=== PATIENT | male | born 1975 | race Caucasian/White ===

== ENCOUNTER 2022-05-21 02:43 | Emergency (ER) | payer OTHER, SELFPAY ==
[2022-05-21] VITALS (14 sets, daily range): BP systolic 109–145; BP diastolic 55–104; PULSE 84–86; RESP 18–20; TEMP 35.6; O2SAT 99
--- NOTE | 2022-05-21 03:00 | ED.CHESTPAIN ---
HPI - Chest Pain General Chief Complaint: Chest Pain Stated Complaint: Chest Pain Time Seen by Provider: 05/21/22 02:54 History of Present Illness HPI narrative: 46-year-old man presenting to the emergency department complaint of relatively abrupt her sudden onset of low chest, gestures to epigastric area discomfort, pain beginning watching TV about an hour and 15 minutes prior to presentation. Vomited on the way here. He says that is had similar episodes like this and when I feel like this I usually take Tums. But have been 6 or 7 funerals this last year and thought maybe a better be checked out. Pain is like I have to have a burp. Has had heartburn which has resolved with weight loss in the past and has not been having recent issues with this. No palpitations. Not actually short of breath. No hematemesis. No known gallbladder disease. Does not drink alcohol. Related Data Home Medications Medication Instructions Recorded Confirmed cetirizine 10 mg tablet 10 mg PO QDAY 12/23/21 Previous Rx's Medication Instructions Recorded lisinopril 40 mg tablet 40 mg PO QDAY #90 tabs 12/26/21 omeprazole 40 mg capsule,delayed 40 mg PO DAILY #30 caps 05/21/22 release ondansetron 4 mg disintegrating 4 mg PO Q4-6H PRN nausea and 05/21/22 tablet vomiting #15 tabs Allergies Allergy/AdvReac Type Severity Reaction Status Date / Time No Known Drug Allergies Allergy Verified 12/23/21 14:06 Review of Systems Status of ROS Reports: 10 or more systems reviewed and unremarkable except as noted in History and below PFSH [facility] Social History Smoking Status: Never smoker Do you use any of these nicotine containing products: None How often do you have a drink containing alcohol: never AUDIT-C Alcohol total score: 0 Non-prescribed substance use: denies use service: No Exam Narrative Exam Narrative: Ambulatory into the emergency department. Tall. With emesis bag. Looks a little barba initially. Skin seems a little clammy. Periodically retching. Lungs appear to be clear. Neck is supple. Oropharynx is sticky. cranial nerves 2-12 look to be intact. There is no stridor. Mild tenderness in the epigastrium. Extremities are without edema. Well perfused. Cardiovascular little distant. Regular rate rhythm. No murmur rub or gallop. Const Vital Signs, click to edit/add: Vital Signs - 24 hr 05/21/22 04:32 05/21/22 04:41 05/21/22 04:52 Blood Pressure 127/104 H 133/86 138/84 05/21/22 05:03 05/21/22 05:12 05/21/22 06:02 Blood Pressure 139/77 139/91 H 120/80 Documenting provider has reviewed patient's vital signs: yes Course Vital Signs Vital signs: Initial Vital Signs Temperature 96.0 F L 05/21/22 02:49 Temperature Source Temporal Artery Scan 05/21/22 02:49 Pulse Rate 86 05/21/22 02:49 Pulse Rhythm 05/21/22 02:49 Respiratory Rate 20 05/21/22 02:49 Blood Pressure 145/97 H 05/21/22 02:49 Blood Pressure Mean 113 05/21/22 02:49 Blood Pressure Position Semi-Fowlers 05/21/22 02:49 Pulse Oximetry 99 05/21/22 02:49 Oxygen Delivery Method 05/21/22 02:49 Vital Signs Temperature 96.0 F L 05/21/22 02:49 Pulse Rate 86 05/21/22 02:49 Respiratory Rate 20 05/21/22 02:49 Blood Pressure 145/97 H 05/21/22 02:49 Pulse Oximetry 99 05/21/22 02:49 Oxygen Delivery Method 05/21/22 02:49 Temperature 96.0 F L 05/21/22 02:49 Pulse Rate 84 05/21/22 03:20 Respiratory Rate 18 05/21/22 03:20 Blood Pressure 120/80 05/21/22 06:02 Pulse Oximetry 99 05/21/22 03:20 Oxygen Delivery Method 05/21/22 03:20 MDM - Chest Pain MDM Narrative Medical decision making narrative: Experiencing vomiting or more retching episodes in the emergency department. Does receive IV fluids. Requested more for nausea was given initially Zofran and then Reglan as well. Finally GI cocktail. Lorazepam and ketamine as retching continued. Also given hyoscyamine. Still without major belly pain on repeat exam. Denies THC. Rested in the emergency department complaint of cold generally. No fever was documented. Ultimately I had been anticipating oral trial but says he can feel awful and be cold at home. I agree that it is chilly in this room. It has had numerous blankets. No fever was measured. Wonder if he had some degree of esophageal spasm with all this. Chest x-ray reviewed by me is with normal mediastinum. No apparent airspace disease. Radiology noting calcified granuloma right upper lung field. Labs otherwise are normal. Lab Data Attestation: I reviewed the patient's lab results. Labs: Lab Results 05/21/22 05/21/22 05/21/22 Range/Units 03:02 03:05 03:05 WBC 6.39 (4.50-11.00) K/uL RBC 4.29 L (4.30-5.90) m/uL Hgb 12.3 L (13.5-17.5) gm/dL Hct 37.0 (37.0-53.0) % MCV 86 (80-100) fL MCH 29 (26-34) pg MCHC 33 (32-36) gm/dL RDW Coeff of Yuliana 13.6 (11.5-15.5) % Plt Count 285 (140-440) K/uL Neut % (Auto) 61.5 (42.0-72.0) % Lymph % (Auto) 26.8 (20-44) % [place] % (Auto) 8.5 (0.0-11.0) % Eos % (Auto) 2.3 (0.0-7.0) % Baso % (Auto) 0.6 (0.0-3.0) % Neut # (Auto) 3.93 (1.7-7.0) K/uL Lymph # (Auto) 1.71 (0.90-2.90) K/uL [place] # (Auto) 0.50 (0.00-0.90) K/UL Eos # (Auto) 0.15 (0.00-0.50) K/uL Baso # (Auto) 0.04 (0.00-0.30) K/uL Sodium 136 (135-149) mmol/L Potassium 4.4 (3.6-5.1) mmol/L Chloride 107 (96-114) mmol/L Carbon Dioxide 22 (20-32) mmol/L BUN 25 H (5-24) mg/dL Creatinine 1.2 (0.5-1.5) mg/dL Estimated GFR 75 ml/min Glucose 141 H (60-115) mg/dL Calcium 9.3 (8.4-10.6) mg/dL Total Bilirubin 0.4 (0.1-1.5) mg/dL Direct Bilirubin 0.2 (0.0-0.5) mg/dL AST 21 (12-35) U/L ALT 21 (4-50) U/L Alkaline Phosphatase 72 (40-150) U/L Troponin I < 0.01 L (0.01-0.04) ng/mL C-Reactive Protein < 0.5 L (0.5-1.0) mg/dL NT-Pro-B Natriuret Pep < 20 pg/mL Total Protein 6.9 (6.0-8.3) g/dL Albumin 4.2 (3.3-5.0) g/dL SARS-CoV-2 (PCR) (Negative) Influenza Type A (PCR) (Negative) Influenza Type B (PCR) (Negative) RSV (PCR) (Negative) POC Troponin I 0.00 L (0.01-0.04) ng/ml 05/21/22 Range/Units 04:30 WBC (4.50-11.00) K/uL RBC (4.30-5.90) m/uL Hgb (13.5-17.5) gm/dL Hct (37.0-53.0) % MCV (80-100) fL MCH (26-34) pg MCHC (32-36) gm/dL RDW Coeff of Yuliana (11.5-15.5) % Plt Count (140-440) K/uL Neut % (Auto) (42.0-72.0) % Lymph % (Auto) (20-44) % [place] % (Auto) (0.0-11.0) % Eos % (Auto) (0.0-7.0) % Baso % (Auto) (0.0-3.0) % Neut # (Auto) (1.7-7.0) K/uL Lymph # (Auto) (0.90-2.90) K/uL [place] # (Auto) (0.00-0.90) K/UL Eos # (Auto) (0.00-0.50) K/uL Baso # (Auto) (0.00-0.30) K/uL Sodium (135-149) mmol/L Potassium (3.6-5.1) mmol/L Chloride (96-114) mmol/L Carbon Dioxide (20-32) mmol/L BUN (5-24) mg/dL Creatinine (0.5-1.5) mg/dL Estimated GFR ml/min Glucose (60-115) mg/dL Calcium (8.4-10.6) mg/dL Total Bilirubin (0.1-1.5) mg/dL Direct Bilirubin (0.0-0.5) mg/dL AST (12-35) U/L ALT (4-50) U/L Alkaline Phosphatase (40-150) U/L Troponin I (0.01-0.04) ng/mL C-Reactive Protein (0.5-1.0) mg/dL NT-Pro-B Natriuret Pep pg/mL Total Protein (6.0-8.3) g/dL Albumin (3.3-5.0) g/dL SARS-CoV-2 (PCR) Negative SARS-CoV-2 (Negative) Influenza Type A (PCR) Negative PCR FLU A (Negative) Influenza Type B (PCR) Negative PCR FLU B (Negative) RSV (PCR) Negative PCR RSV (Negative) POC Troponin I (0.01-0.04) ng/ml ECG Data Attestation: I personally reviewed and interpreted this ECG as follows: (Normal sinus rhythm rate of 72) Discharge Plan Discharge Clinical Impression: Epigastric pain, Vomiting Patient Disposition: Home w/ Parent or Adult Condition: Improved Additional Instructions: Focus on hydration with slow advance of diet over the next 24-36 hours. Diluted juices, soup broths to thicker soups and smoothies. Rice. [place]. Zofran from [facility]. I would also consider taking omeprazole for 2 weeks. Return again for intractable vomiting, marked increase in pain, associated fever. Prescriptions: New omeprazole 40 mg capsule,delayed release(DR/EC) 40 mg PO DAILY Qty: 30 0RF ondansetron 4 mg tablet,disintegrating 4 mg PO Q4-6H PRN (Reason: nausea and vomiting) Qty: 15 0RF No Action cetirizine 10 mg tablet 10 mg PO QDAY lisinopril 40 mg tablet 40 mg PO QDAY Qty: 90 3RF Follow Up/Referrals: Gil Covington MD [Primary Care Provider] - Stand Alone Forms: [employer] Info Instructions
--- NOTE | 2022-05-21 03:01 | CRLHL7_ITS ---
For Patients: As a result of the Century Cures Act, medical imaging exams and procedure reports are released immediately into your electronic medical record. You may view this report before your referring provider. If you have questions, please contact your health care provider. Indication: Chest pain. Technique: Chest 1 view. Comparison: None. Findings/Impression: Cardiovascular and mediastinum: Heart size and vasculature are normal in caliber and appearance. Moderate-sized hiatal hernia. No other finding to explain chest pain. Lungs and pleural space: Lungs are clear except for a calcified right upper lobe granuloma. No sign of infiltrate or mass. No sign of pleural effusion. No pneumothorax. Bones and soft tissues: No acute findings. Dictated by Martín Moura MD @ 05/21/2022 4:05:57 AM (Electronically Signed)
[2022-05-21] MEDS: ONDANSETRON 2 MG/ML inj 4 MG IVP (03:21)
[2022-05-21] MEDS: 0.9 % SODIUM CHLORIDE 1000 ml 1,000 ML IV (03:21)
[2022-05-21 03:27] LABS: Basophils Absolute Auto 0.04 K/uL (0.00-0.30); Basophils Percent Auto 0.6 % (0.0-3.0); Eosinophils Absolute Auto 0.15 K/uL (0.00-0.50); Eosinophils Percent Auto 2.3 % (0.0-7.0); Hemoglobin* 12.3 gm/dL (13.5-17.5); Immature Granulocytes Abs Auto 0.02 K/uL (0.00-0.30); Immature Granulocytes Pct Auto 0.3 %; Lymphocytes Absolute Auto 1.71 K/uL (0.90-2.90); Lymphocytes Percent Auto 26.8 % (20-44); Mean Corpuscular HGB Conc 33 gm/dL (32-36); Mean Corpuscular Hemoglobin 29 pg (26-34); Mean Corpuscular Volume 86 fL (80-100); Monocytes Percent Auto 8.5 % (0.0-11.0); Neutrophils Absolute Auto 3.93 K/uL (1.7-7.0); Neutrophils Percent Auto 61.5 % (42.0-72.0); Platelet Count* 285 K/uL (140-440); RDW Coefficient of Variation % 13.6 % (11.5-15.5); Red Blood Count 4.29 m/uL (4.30-5.90); White Blood Count* 6.39 K/uL (4.50-11.00)
[2022-05-21 03:32] LABS: Slide Review Reflex No
[2022-05-21 03:40] LABS: Chloride* 107 mmol/L (96-114)
[2022-05-21 03:41] LABS: Albumin* 4.2 g/dL (3.3-5.0); Potassium* 4.4 mmol/L (3.6-5.1); Sodium* 136 mmol/L (135-149)
[2022-05-21 03:43] LABS: Creatinine* 1.2 mg/dL (0.5-1.5); Estimated Glomerular Filt Rate 75 ml/min
[2022-05-21 03:44] LABS: Alanine Aminotransferase* 21 U/L (4-50); Alkaline Phosphatase* 72 U/L (40-150); Aspartate Amino Transferase* 21 U/L (12-35); Bilirubin Direct* 0.2 mg/dL (0.0-0.5); Bilirubin Total* 0.4 mg/dL (0.1-1.5); Blood Urea Nitrogen* 25 mg/dL (5-24); Calcium* 9.3 mg/dL (8.4-10.6); Carbon Dioxide* 22 mmol/L (20-32); Glucose* 141 mg/dL (60-115); Total Protein* 6.9 g/dL (6.0-8.3)
[2022-05-21 03:49] LABS: C Reactive Protein* < 0.5 mg/dL (0.5-1.0)
[2022-05-21] MEDS: LORazepam 2 MG/ML inj 0.5 MG IVP (03:50)
[2022-05-21] MEDS: METOCLOPRAMIDE HCL 10 MG in 0.9 % SODIUM CHLORIDE 100 ml 100 ML 306 MG IVPB (03:50)
[2022-05-21 03:56] LABS: NT Pro B Type NatriureticPept* < 20 pg/mL; Troponin I* < 0.01 ng/mL (0.01-0.04)
[2022-05-21] MEDS: GI COCKTAIL (VISC LIDO/ANTACID) 30 ML PO (04:23)
[2022-05-21] MEDS: HYOSCYAMINE SULFATE 0.125 MG TAB 0.25 MG SUBLINGUAL (04:48)
[2022-05-21] MEDS: KETAMINE HCL 20 MG in 0.9 % SODIUM CHLORIDE 100 ml 100 ML 300.6 MG IVPB (04:49)
--- NOTE | 2022-05-21 05:15 | ED.NURSE ---
pt chest pain change to more upper medial abdominal pain. Pt still vomiting and nauseated.
[2022-05-21 05:22] LABS: PCR FLU A Negative PCR FLU A (Negative); PCR FLU B Negative PCR FLU B (Negative); PCR RSV Negative PCR RSV (Negative)
[2022-05-21 05:34] LABS: SARS PCR* Negative SARS-CoV-2 (Negative)
--- NOTE | 2022-05-21 07:26 | ED.NURSE ---
called permission granted from pt, and gave update on pt condition
--- NOTE | 2022-05-21 08:02 | ED.NURSE ---
pt wants prescriptions filled at [facility] instead, message left at [facility]. message also left at [facility]
== END 2022-05-21 07:55 | disposition home or self-care (01) ==
PROVIDERS: Emergency Provider Family Medicine; PCP Family Medicine
DX: R10.13 Epigastric pain (principal)
CPT/HCPCS: 36415; 71045; 80048; 80076; 83880; 84484; 85025; 86140; 87502; 87634; 87635; 96365; 96366; 96375; 99284; A9270; J2060; J2405; J2765; J3490; J7030

== ENCOUNTER 2023-08-01 08:33 | Outpatient (CLI) | payer OTHER, SELFPAY | END 2023-08-01 08:34 | disposition home or self-care (01) | PROVIDERS: PCP Family Medicine; Visit Provider Family Medicine | DX: Z00.00 Encounter for general adult medical examination without abnormal findings (principal); I10 Essential (primary) hypertension; E66.9 Obesity, unspecified; R53.83 Other fatigue | CPT/HCPCS: 80048; 84403; 84439 ==

== ENCOUNTER 2024-12-03 13:41 | Outpatient (CLI) | payer OTHER, SELFPAY | END 2024-12-03 13:42 | disposition home or self-care (01) | PROVIDERS: PCP Family Medicine; Visit Provider Family Medicine | DX: Z00.00 Encounter for general adult medical examination without abnormal findings (principal); I10 Essential (primary) hypertension; Z12.5 Encounter for screening for malignant neoplasm of prostate | CPT/HCPCS: 80048; G0103 ==

== ENCOUNTER 2025-02-04 08:58 | Outpatient (CLI) | payer OTHER, SELFPAY | END 2025-02-04 08:59 | disposition home or self-care (01) | LOC: LKVREF 09:00 | PROVIDERS: PCP Family Medicine; Visit Provider Family Medicine | DX: R97.20 Elevated prostate specific antigen [PSA] (principal) | CPT/HCPCS: 84153 ==